=== PATIENT | female | born 1935 | race Caucasian/White ===

== ENCOUNTER 2016-11-30 13:00 | Outpatient (CLI) | payer MEDICARE ==
[~2016-11-30] VITALS: Ht 172.7 cm; Wt 54.5 kg
[2016-11-30 12:01] VITALS: Ht 172.7 cm; Wt 54.5 kg
[~2016-11-30 13:00] MED LIST: CALCIUM 500 + D1 TAB PO; GLUCOSAMINE & C1 CAP PO; LOZOL1.25 MG PO; MELATONIN 3 MG1 TAB PO; MULTIPLE VITAMI1 TA1 PO; OXYBUTYNIN CHLOR5 MG PO; VERAPAMIL HCL40 MG
== END 2016-11-30 23:59 | disposition home or self-care (01) ==
LOC: D.OPS 13:00
DX: M81.0 Age-related osteoporosis without current pathological fracture (principal)

== ENCOUNTER → 2017-05-09 11:06 | Outpatient (CLI) | payer MEDICARE ==
[2017-05-09 12:36] VITALS: BP 155/89; Ht 172.7 cm
== END | disposition home or self-care (01) ==
LOC: D.OPS 11:00
DX: M81.0 Age-related osteoporosis without current pathological fracture (principal)

== ENCOUNTER 2017-11-14 10:34 | Outpatient (CLI) | payer MEDICARE ==
[~2017-11-14] VITALS: Ht 172.7 cm; Wt 48.6 kg
[2017-11-14 11:28] VITALS: BP 139/63; Ht 172.7 cm; Wt 48.6 kg
== END 2017-11-14 11:30 | disposition home or self-care (01) ==
LOC: D.OPS 10:34
DX: M81.0 Age-related osteoporosis without current pathological fracture (principal)

== ENCOUNTER 2018-05-21 14:14 | Outpatient (CLI) | payer MEDICARE ==
[~2018-05-21] VITALS: Ht 172.7 cm; Wt 52.3 kg
[2018-05-21 14:40] VITALS: Ht 172.7 cm; Wt 52.3 kg
== END 2018-05-21 14:48 | disposition home or self-care (01) ==
LOC: D.OPS 14:14
DX: M81.0 Age-related osteoporosis without current pathological fracture (principal); Z01.812 Encounter for preprocedural laboratory examination